=== PATIENT | female | born 1985 | race Caucasian/White ===

== ENCOUNTER 2023-08-21 02:13 | Emergency (ER) | payer OTHER, SELFPAY ==
[2023-08-21 02:17] VITALS: BP 99/60; BMI 23.8
[2023-08-21 02:19] VITALS: BP 99/60
--- NOTE | 2023-08-21 02:20 | EDRN ---
Pt refusing to get into a hospital gown, explained to her to properly evaluate and treat her we need her in a hospital gown. Pt agreed to put on gown, pt also requesting water, explained to her she cannot have anything to eat or drink until the test
results are back. Pt declined an IV for EMS, I explained to the pt that we need to insert an IV to draw lab work and administer medications if needed, after continued reinforcement and education on the need for an IV to be placed, pt agreed. Pt
asking 'how much longer will I be her?'. I informed the pt that she needs to be evaluated by the physician first.
--- NOTE | 2023-08-21 02:39 | ED.GENMED ---
History of Present Illness
General
Chief Complaint: Heart Rate Problem
Source: patient
Exam Limitations: none
Time Seen by Provider: 08/21/23 02:15
Nursing documentation reviewed up to this point in time: agreed with
Travel History
Have you had any contact with someone who has COVID-19?: No
Do you have any symptoms of coronavirus? Fever > 100 degrees, chills, cough, shortness of breath, sore throat, loss of taste or smell, muscle aches, or headache?: No
History of Present Illness
History of Present Illness:
This a pleasant 38-year-old female presents with heart palpitations. She states that she awakened from sleep around 2 AM with these palpitations. Patient has been to the emergency department twice recently for identical symptoms. She has had a
Holter monitor and a full cardiac workup. Patient denies fever, chills, nausea or vomiting. She does have a history of anxiety and panic but states that this does not feel like either. Has limited her caffeine intake. 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 She works in [employer] and states that she is under constant amount of stress.
Past History
Past History
ED Past Medical History: Other (Anxiety); Negative HTN, Hypercholesterolemia, IDDM or NIDDM
Social History
Tobacco: Non-smoker
Alcohol: None
Drug: None
Living: with family
Employment: Employed
Review of Systems
Review of Systems
Allergies reviewed?: Yes
All Other Systems: ROS reviewed and negative except as documented in HPI and ROS
Constitutional: Reports no symptoms
EENT: Reports no symptoms
Respiratory: Reports no symptoms
Cardiac: Reports palpitations; Denies chest pain or diaphoresis
ABD/GI: Reports no symptoms
: Reports no symptoms
Musculoskeletal: Reports no symptoms
Skin: Reports no symptoms
Neurological: Reports no symptoms
Endocrine: Reports no symptoms
Hematologic/Lymphatic: Reports no symptoms
Psychiatric: Reports anxiety
Phy Exam
General Physical Exam
General Presentation: well appearing and no apparent distress
General Skin: warm and dry
General Habitus: normal
General Mental: alert
General Hydration: appears well hydrated
ENT Exam
ENT Exam: EOMI, pharynx normal, neck supple and normocephalic
Eye Exam
Eye Exam: PERRL, cornea clear and conjunctiva normal
Cardiovascular Exam
Cardiovascular Exam: regular rate/rhythm, no edema, no murmur and normal peripheral pulses
Pulmonary Exam
Pulmonary Exam: lungs clear, no respiratory distress, no rales, no crackles, no rhonchi, no stridor, no wheezing and no cough
Gastrointestinal Exam
Gastrointestinal Exam: normal bowel sounds, non tender, soft, no organomegaly, no pulsatile mass and non distended
Neurological Exam
Neurological Exam: alert, oriented x3, no motor deficits and speech normal
Musculoskeletal Exam
Musculoskeletal Exam: full ROM and no edema
Skin Exam
Skin Exam: normal color, warm/dry, no rash and no petechia
Psychiatric Exam
Psychiatric Exam: anxious
Course
Orders/Labs/Results
Orders:
Orders
08/21/23 02:16
Electrocardiogram (*1) Stat
Reason for Study: Other
Other Reason for Exam: chest pain
Cardiac Monitoring- Treatment ONCE
EKG- Treatment ONCE
08/21/23 02:29
Complete Blood Count/With Diff Urgent
Comprehensive Metabolic Panel Urgent
D-Dimer Urgent
NT-proBNP Urgent
PTT Urgent
Prothrombin Time Urgent
TSH Urgent
Troponin I Urgent
08/21/23 03:26
CR Chest - 2 Views Urgent
Comment:
Reason For Exam: palpitations
Abnormal Lab Results
08/21/23
02:29
MCH 31.6 H pg
(27.0-31.0)
RDW 11.1 L %
(11.5-14.5)
Absolute Neuts (auto) 6.6 H 10^3/uL
(1.4-6.5)
Lymphocytes % 18.8 L %
(20.5-51.1)
PT 15.4 H Sec
(11.4-14.6)
Sodium 134 L mmol/L
(135-145)
Glucose 109 H mg/dl
(70-99)
TSH 6.16 H uIU/ml
(0.47-4.68)
08/21/23 02:29
08/21/23 02:29
Vital Signs
Initial and Last Documented VS:
Initial Vital Signs
Temp Pulse Resp BP Pulse Ox
98.4 F 84 18 99/60 99
08/21/23 02:17 08/21/23 02:17 08/21/23 02:17 08/21/23 02:17 08/21/23 02:17
Last Documented Vital Signs
Temp Pulse Resp BP Pulse Ox
98.4 F 89 15 98/61 99
08/21/23 02:17 08/21/23 04:15 08/21/23 04:15 08/21/23 04:00 08/21/23 04:15
*Critical Care Note
Total Time (30-74mins, 75-104mins- exclusive of procedures): Not Applicable
Update Note
Update Note:
Troponin negative white blood cell count negative D-dimer negative.
08/21/2023 0425 AM: Patient resting comfortable in the bed. Discussed return to ER instructions. Patient will follow-up with cardiology and primary care provider as needed.
ED Attending Note
-
Portions of this chart may have been created with voice recognition software.� Occasional wrong word or��sound alike� substitutions may have occurred due to the inherent limitations of voice recognition software.
Discharge Plan
Departure
Patient Disposition: Home (Routine Discharge)
Date of Disposition: 08/21/23
Time of Disposition: 04:26
Patient with high blood pressure during this ER visit?: No
Condition: Good
Discharge Problem:
Palpitations
Prescriptions:
No Action
metoprolol succinate 12.5 MG tablet extended release 24 hr
12.5 mg PO DAILY PRN (Reason: palpitations) Qty: 14 0RF
propranolol 10 mg tablet
10 mg PO ONCE PRN (Reason: palpitations) Qty: 10 0RF
Referrals:
Amanda Calhoun CRNP [Family Provider] -
Interventions
Interventions:
*Risk Screen - Suicide Last Done: 08/21/23 02:17
*General Assessment Last Done: 08/21/23 02:17
*Neglect/Abuse Screening Last Done: 08/21/23 02:17
ED- Fall Risk Assessment Last Done: 08/21/23 02:45
*ED COVID-19 Vaccine History Last Done: 08/21/23 02:17
*Nursing Disposition Last Done: 08/21/23 05:00
ED- Cardiac Assessment Last Done: 08/21/23 02:45
ED- Pulmonary Assessment Last Done: 08/21/23 02:45
Discharge Date and Time
Discharge Date/Time: 08/21/23 05:01
[2023-08-21 02:49] LABS: % Basophils 0.5 % (0-2); % Eosinophils 0.7 % (0-6); % Immature Granulocytes 0.4 % (0-0.5); % Lymphocytes 18.8 % (20.5-51.1); % Monocytes 6.9 % (1.7-9.3); % Neutrophils 72.7 % (42.2-75.2); Absolute Basophils 0.1 10^3/uL (0-0.2); Absolute Eosinophils 0.1 10^3/uL (0-0.7); Absolute Lymphocytes 1.7 10^3/uL (1.2-3.4); Absolute Monocytes 0.6 10^3/uL (0.1-0.6); Absolute Neutrophils 6.6 10^3/uL (1.4-6.5); Hematocrit 39.4 % (37.0-47.0); Mean Corp Hgb Conc. 35.5 g/dL (33.0-37.0); Mean Corpuscular Hgb 31.6 pg (27.0-31.0); Mean Corpuscular Volume 88.9 fL (81.0-99.0); Mean Platelet Volume 9.1 fL (7.4-10.4); Nucleated Red Blood Cells % 0 %; Platelet Count 354 10^3/uL (130-400); Red Blood Cell Count 4.43 10^6/uL (4.20-5.40); Red Cell Dist. Width 11.1 % (11.5-14.5); White Blood Cell Count 9.1 10^3/uL (4.8-10.8)
[2023-08-21 02:56] LABS: INR 1.22; PT 15.4 Sec (11.4-14.6)
[2023-08-21 02:57] LABS: APTT 29.8 Sec (23.4-35.0)
[2023-08-21 03:00] VITALS: BP 106/75
[2023-08-21 03:05] LABS: D-Dimer < 0.27 ug/mlFEU (0.00-0.50)
[2023-08-21 03:11] LABS: NT-proBNP 33.2 pg/ml; Troponin I < 0.012 ng/ml
[2023-08-21 03:14] LABS: ALT (SGPT) 15 U/L (0-35); AST (SGOT) 25 U/L (14-36); Albumin 4.3 g/dl (3.5-5.0); Alkaline Phosphatase 58 U/L (38-126); Blood Urea Nitrogen 7 mg/dl (7-17); Calcium 9.1 mg/dl (8.4-10.2); Carbon Dioxide 25 mmol/L (22-30); Chloride 103 mmol/L (98-107); Estimated Creatinine Clearance 83 ml/min; Glucose 109 mg/dl (70-99); Potassium 3.7 mmol/L (3.5-5.1); Sodium 134 mmol/L (135-145); Total Bilirubin 0.6 mg/dl (0.2-1.3); eGFR > 60.00
[2023-08-21 04:00] VITALS: BP 98/61
[2023-08-21 04:00] LABS: TSH 6.16 uIU/ml (0.47-4.68)
== END 2023-08-21 05:01 | disposition home or self-care (01) ==
LOC: EMR 02:13
PROVIDERS: EMERGENCY PHYSICIAN Student in an Organized Health Care Education/Training Program; FAMILY PHYSICIAN Nurse Practitioner
DX: R00.2 Palpitations (principal); F41.9 Anxiety disorder, unspecified
CPT/HCPCS: 99285; 71046; 80053; 83880; 84443; 84484; 85025; 85379; 85610; 85730; 93005

== ENCOUNTER → 2023-11-24 19:03 | Outpatient (REF) | payer OTHER, SELFPAY | LOC: WDC 19:03 | PROVIDERS: ATTENDING PHYSICIAN Nurse Practitioner | DX: Z12.31 Encounter for screening mammogram for malignant neoplasm of breast (principal) | CPT/HCPCS: 77063; 77067 ==

== ENCOUNTER → 2024-11-04 10:14 | Outpatient (REF) | payer BC, SELFPAY | LOC: MRI 3T 10:14 | PROVIDERS: ATTENDING PHYSICIAN Internal Medicine Endocrinology, Diabetes & Metabolism; FAMILY PHYSICIAN Nurse Practitioner | DX: D35.2 Benign neoplasm of pituitary gland (principal) | CPT/HCPCS: 70553; A9575 ==

== ENCOUNTER → 2024-11-24 17:21 | Outpatient (REF) | payer BC, SELFPAY | LOC: WDC 17:21 | PROVIDERS: ATTENDING PHYSICIAN Obstetrics & Gynecology Female Pelvic Medicine and Reconstructive Surgery; FAMILY PHYSICIAN Family Medicine | DX: Z12.31 Encounter for screening mammogram for malignant neoplasm of breast (principal) | CPT/HCPCS: 77063; 77067 ==